=== PATIENT | female | born 1945 | race Caucasian/White ===

== ENCOUNTER 2018-02-07 13:21 | Emergency (ER) | payer OTHER ==
[~2018-02-07] VITALS: Ht 165.1 cm; Wt 65.8 kg
--- NOTE | 2018-02-07 13:28 | NUR ---
PT IS IN ROOM #1B. DR SAWANT EVALUATED THE PT.
[2018-02-07] MEDS ORDERED: LABETALOL HCL 100 MG/20 ML VIAL IV ONE (13:45)
[2018-02-07] MEDS ORDERED: ONDANSETRON 4 MG/2 ML VIAL ONE ×2 (13:46→16:05)
[2018-02-07] MEDS ORDERED: LABETALOL HCL 100 MG/20 ML VIAL ONE (13:51)
[2018-02-07] MEDS ORDERED: ONDANSETRON IV *ER 4 MG/2 ML VIAL IV ONE ×2 (14:00→16:00)
[2018-02-07] MEDS ORDERED: METOPROLOL PO (14:06)
[2018-02-07] MEDS ORDERED: TRIAMTERENE (14:06)
--- NOTE | 2018-02-07 14:06 | NUR ---
PT DOES NOT KNOW DOSAGES OF MEDS.
[2018-02-07] MEDS ORDERED: MULT1TAB73 PO (15:31)
[2018-02-07] MEDS ORDERED: DOCU-141 PO (15:31)
--- NOTE | 2018-02-07 15:50 | NUR ---
DR SAWANT MADE PATIENT AWARE OF TEST RESULTS.
[2018-02-07] MEDS ORDERED: MORPHINE SULFATE 4 MG/1 ML DISP.SYRIN IV ONE (16:00)
[2018-02-07] MEDS ORDERED: MORPHINE SULFATE 4 MG/1 ML DISP.SYRIN ONE (16:04)
--- NOTE | 2018-02-07 16:21 | NUR ---
Patient discharged to home in stable conditon. Written and verbal after care instructions given. Patient and son verbalizes understanding of instructions.
[2018-02-07 16:22] VITALS: BP 145/89
== END 2018-02-07 16:23 | disposition home or self-care (01) ==
LOC: ER 13:21
DX: S42.301A Unspecified fracture of shaft of humerus, right arm, initial encounter for closed fracture (principal); S00.93XA Contusion of unspecified part of head, initial encounter; I10 Essential (primary) hypertension; Z91.041 Radiographic dye allergy status; W01.198A Fall on same level from slipping, tripping and stumbling with subsequent striking against other object, initial encounter; Y93.89 Activity, other specified; Y92.89 Other specified places as the place of occurrence of the external cause; Y99.8 Other external cause status
CPT/HCPCS: 70450; 70486; 72125; 73030; 96374; 96375; 96376; 99284; A4663; J2270; J2405 ×2; J3490